=== PATIENT | female | born 1985 | race American Indian/Alaskan Native ===

== ENCOUNTER 2017-12-09 17:16 | Emergency (ER) | payer BC ==
[2017-12-09 17:23] VITALS: BP 138/80; PULSE 92; RESP 20; TEMP 98.8; O2SAT 98
--- NOTE | 2017-12-09 18:13 | ED PDOC ---
Lower Extremity Pain/Injury Time Seen by Provider: 12/09/17 18:05 Chief Complaint (Nursing): Lower Extremity Problem/Injury History Per: Patient History/Exam Limitations: no limitations Onset/Duration Of Symptoms: Days Current Symptoms Are (Timing): Still Present Additional Complaint(s): 32 y/o female, whose PMH includes right knee pain, who presents to the ED complaining of right knee pain that has been worsening since last week. Patient reports also having right calf pain when sleeping associated with tingling of the right foot. Patient notes doing a lot of heavy lifting at work and also working out. Patient denies shortness of breath, dysuria, hematuria, fever, or other complaints. Past Medical History Reviewed: Historical Data, Nursing Documentation, Vital Signs Vital Signs: Last Vital Signs Temp 98.8 F 12/09/17 17:20 Pulse 92 H 12/09/17 17:20 Resp 20 12/09/17 17:20 BP 138/80 12/09/17 17:20 Pulse Ox 98 12/09/17 17:20 - Family History Family History: States: Unknown Family Hx - Immunization History Hx Tetanus Toxoid Vaccination: (UTD) - Home Medications Home Medications: Ambulatory Orders Medication Instructions Recorded Ibuprofen [Motrin] 600 mg PO Q8 #20 tab 07/21/15 Naproxen [Naprosyn] 500 mg PO BID PRN #20 tablet 01/22/16 Ibuprofen [Motrin] 600 mg PO Q6 PRN #15 tab 02/23/16 Oxycodone HCl/Acetaminophen 1 tab PO Q6H PRN #15 tab 03/28/16 [Percocet 325 mg-5 mg] Penicillin VK [Pen-Vee K] 500 mg PO BID #20 tab 03/28/16 Naproxen 375 mg PO Q8 PRN #21 tablet 12/09/17 - Allergies Allergies/Adverse Reactions: Allergies Allergy/AdvReac Type Severity Reaction Status Date / Time No Known Allergies Allergy Verified 12/09/17 17:20 Review of Systems ROS Statement: Except As Marked, All Systems Reviewed And Found Negative Constitutional: Negative for: Fever Genitourinary Female: Negative for: Dysuria, Hematuria Musculoskeletal: Positive for: Leg Pain (right knee pain ), Foot Pain (right foot tingling), Other (right calf pain ) Physical Exam - Reviewed Nursing Documentation Reviewed: Yes Vital Signs Reviewed: Yes - Physical Exam Appears: Positive for: Well, Non-toxic, No Acute Distress Head Exam: Positive for: ATRAUMATIC, NORMAL INSPECTION, NORMOCEPHALIC Skin: Positive for: Normal Color, Warm, DRY Eye Exam: Positive for: EOMI, Normal appearance, PERRL Pulses-Dorsalis Pedis (L): 2+ Pulses-Dorsalis Pedis (R): 2+ Pulses-Post. Tibialis (L): 2+ Pulses-Post. Tibialis (R): 2+ Extremity: Positive for: Normal ROM, Capillary Refill, Other (mild crepitus on right knee. warm to touch ). 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 no obvious bony injury Placed in knee immobilizer Crutch instructions given. Medical Decision Making Medical Decision Making: Plans: -- Right knee x-ray -- Right leg ultrasound Scribe Attestation: Margaret Mcknight MD Scribe Attestation: All medical record entries made by the Scribe were at my direction and personally dictated by me. I have reviewed the chart and agree that the record accurately reflects my personal performance of the history, physical exam, medical decision making, and the department course for this patient. I have also personally directed, reviewed, and agree with the discharge instructions and disposition. Disposition - Clinical Impression Clinical Impression: Knee pain - Patient ED Disposition Is Patient to be Admitted: No - Disposition Referrals: Solis Nino III, MD [Staff Provider] - Disposition: Routine/Home Disposition Time: 19:59 Condition: FAIR Prescriptions: Naproxen 375 mg PO Q8 PRN #21 tablet PRN Reason: Pain, Moderate (4-7) Instructions: Knee Pain (DC) Forms: [employer] ([place]ian), [facility] ED School/Work Excuse
--- NOTE | 2017-12-10 08:03 | RAD ---
PROCEDURE: Right Knee Radiographs. HISTORY: knee pain COMPARISON: None. FINDINGS: BONES: No acute fracture or destructive bony lesion identified. JOINTS: Normal. No osteoarthritis. JOINT EFFUSION: Trace suprapatellar bursa effusion noted. OTHER FINDINGS: None. IMPRESSION: Trace suprapatellar bursa effusion. No acute fracture, dislocation or subluxation identified. No destructive bony lesion identified.
--- NOTE | 2017-12-10 10:18 | US ---
PROCEDURE: Right lower extremity venous Doppler dated 12/09/2017 HISTORY: r/o dvt COMPARISON: Correlation made with prior study left lower extremity venous Doppler dated 01/22/2016 TECHNIQUE: Common femoral, superficial femoral, popliteal and posterior tibial veins were evaluated. Flow was assessed with color Doppler, compressibility, assessment of phasic flow and augmentation response. FINDINGS: COMMON FEMORAL VEIN: Unremarkable. SUPERFICIAL FEMORAL VEIN: Unremarkable. POPLITEAL VEIN: Unremarkable. POSTERIOR TIBIAL VEIN: Unremarkable. OTHER FINDINGS: None. IMPRESSION: No evidence of deep venous thrombosis in the right lower extremity.
== END 2017-12-09 20:11 | disposition home or self-care (01) ==
LOC: H.ER 17:16
DX: M25.561 Pain in right knee (principal)